=== PATIENT | male | born 1955 | race Caucasian/White ===

== ENCOUNTER → 2017-10-09 | Outpatient (REF) ==
[2017-10-09 16:47] LABS: THYROID STIMULATING HORMONE 1.87 uIU/mL (0.465-4.680)
[2017-10-09 17:42] LABS: PSA-TOTAL 1.07 ng/mL (0-4)
== END ==
LOC: ZLAB.WCH 15:52
PROVIDERS: Internal Medicine
DX: Z01.89 Encounter for other specified special examinations (principal)
CPT/HCPCS: G0103

== ENCOUNTER → 2017-10-14 | Outpatient (REF) | LOC: COL.CARD 09:20 | DX: Z01.89 Encounter for other specified special examinations (principal) ==